=== PATIENT | female | born 1990 | race Hispanic/Latino ===

== ENCOUNTER 2017-12-24 07:36 | Inpatient (IN) | payer OTHER ==
[~2017-12-24] VITALS: Ht 154.9 cm; Wt 109.1 kg
[~2017-12-24 07:36] MED LIST: CETI10CA5 PO; PREN-66 PO
[2017-12-24 08:02] LABS: APPEARANCE,URINE CLEAR (CLEAR); BILIRUBIN,URINE NEGATIVE (NEGATIVE); COLOR,URINE YELLOW (YELLOW); GLUCOSE, URINE (UA) NEGATIVE (NEGATIVE); KETONES,URINE NEGATIVE (NEGATIVE); LEUKOCYTE ESTERASE ,URINE SMALL (NEGATIVE); NITRATE,URINE NEGATIVE (NEGATIVE); OCCULT BLOOD,URINE NEGATIVE (NEGATIVE); PROTEIN,URINE NEGATIVE (NEGATIVE); UROBILINOGEN,URINE 0.2 mg/dL (0.2-1.0)
[2017-12-24] MEDS ORDERED: ONDANSETRON HCL 4 MG/2 ML VIAL ONE (08:06)
[2017-12-24] MEDS ORDERED: MORPHINE SULFATE 8 MG/ML VIAL ONE ×2 (08:07→09:27)
[2017-12-24 08:15] LABS: BACTERIA,URINE Rare /HPF (None Seen); RBC,URINE 0-1 /HPF (0-1); SQUAMOUS EPITHELIAL CELL,UR Rare /HPF (0-2); WBC,URINE 0-1 /HPF (0-1)
[2017-12-24 08:16] LABS: BASOPHILS % (AUTO) 0.7 % (0.0-5.0); EOSINOPHILS % (AUTO) 3.2 % (0.0-8.0); HEMATOCRIT 40.2 % (36-48); LYMPHOCYTES % (AUTO) 33.2 % (21.0-51.0); MEAN CORPUSCULAR HEMOGLOBIN 30.6 pg (27.0-33.0); MEAN CORPUSCULAR HGB CONC 33.7 g/dL (32.0-36.0); MEAN CORPUSCULAR VOLUME 90.8 fL (79-99); MONOCYTES % (AUTO) 6.5 % (3.0-13.0); NEUTROPHILS % (AUTO) 56.4 % (40.0-77.0); PLATELET COUNT (AUTO) 261 K/uL (130-400); RED BLOOD CELL COUNT(AUTO) 4.42 MIL/uL (4.00-5.50); RED CELL DISTRIBUTION WIDTH 13.8 % (11.0-15.5); WHITE BLOOD COUNT (AUTO) 10.4 K/uL (4.8-10.8)
[2017-12-24 08:26] LABS: CREATININE 0.7 mg/dL (0.5-1.5); POTASSIUM 4.1 mmol/L (3.5-5.1)
[2017-12-24 08:31] LABS: ALBUMIN 3.4 g/dL (3.5-5.0); BILIRUBIN,TOTAL 0.2 mg/dL (0.2-1.0); TOTAL PROTEIN, SERUM 7.5 g/dL (6.0-8.3)
[2017-12-24] MEDS ORDERED: SODIUM CHLORIDE 0.9% 1000ML 1,000 ML IV SCH (11:14)
[2017-12-24] MEDS ORDERED: ONDANSETRON HCL 4 MG/2 ML VIAL IV PRN (11:15)
[2017-12-24] MEDS ORDERED: ACETAMINOPHEN 325 MG TAB PO PRN (11:15)
[2017-12-24] MEDS ORDERED: MORPHINE SULFATE 4 MG/1ML SYG IV PRN (11:15)
[2017-12-24] MEDS ORDERED: HYDRALAZINE HCL 20 MG/ML VIAL IV PRN (11:15)
[2017-12-24] MEDS ORDERED: SODIUM CHLORIDE 0.9% 1000ML 1,000 ML IV ONE (11:50)
[2017-12-24] MEDS ORDERED: KETOROLAC TROMETHAMINE 30MG/ML ONE (12:41)
[2017-12-24] MEDS: SODIUM CHLORIDE 0.9% 1000ML 1,000 ML IV SCH ×2 (13:00→21:20)
[2017-12-24] MEDS: CETIRIZINE HCL 5 MG TABLET PO SCH (13:00)
[2017-12-24 13:25] VITALS: BP 124/81
[2017-12-24] MEDS: ACETAMINOPHEN-CODEINE 300/30MG TAB PO PRN ×2 (15:28→21:13)
[2017-12-24 16:00] VITALS: BP 134/89
[2017-12-24 19:18] VITALS: BP 142/83
[2017-12-24] MEDS: FAMOTIDINE/PF 20 MG/2 ML VIAL IV SCH (21:10)
[2017-12-25] VITALS (22 sets, daily range): BP systolic 99–157; BP diastolic 48–98
[2017-12-25] MEDS: SODIUM CHLORIDE 0.9% 1000ML 1,000 ML IV SCH ×2 (05:32→11:00)
[2017-12-25] MEDS: PRENATAL VITAMIN RX TABLET PO SCH (09:00)
[2017-12-25] MEDS: CEFAZOLIN SODIUM 1 GM VIAL IVP SCH ×3 (09:29→20:12)
[2017-12-25] MEDS: FAMOTIDINE/PF 20 MG/2 ML VIAL IV SCH ×2 (09:29→21:17)
[2017-12-25] MEDS: CETIRIZINE HCL 5 MG TABLET PO SCH (12:00)
[2017-12-25] MEDS ORDERED: MIDAZOLAM HCL 1 MG/ML 2ML VIAL ONE ×2 (12:13→13:16)
[2017-12-25] MEDS ORDERED: SUCCINYLCHOLINE 200MG/10ML SYR ONE (13:15)
[2017-12-25] MEDS ORDERED: LIDOCAINE PF 2% 5ML ABBOJECT ONE (13:15)
[2017-12-25] MEDS ORDERED: DEXAMETHASONE SOD PHOSPHATE 10MG/ML 1ML VIAL ONE ×2 (13:15→13:18)
[2017-12-25] MEDS ORDERED: GLYCOPYRROLATE 1 MG/5 ML SYRINGE ONE (13:16)
[2017-12-25] MEDS ORDERED: ONDANSETRON HCL 4 MG/2 ML VIAL ONE (13:16)
[2017-12-25] MEDS ORDERED: PROPOFOL 10 MG/ML 20ML VIAL IV ONE (13:16)
[2017-12-25] MEDS ORDERED: FENTANYL CITRATE PF 50 MCG/1 ML 2ML VIAL ONE ×2 (13:17→14:53)
[2017-12-25] MEDS ORDERED: NEOSTIGMINE 5MG/5ML SYR IV ONE (13:17)
[2017-12-25] MEDS ORDERED: ROCURONIUM 10MG/1ML SYR 10 MG/ML ML ONE (13:17)
[2017-12-25] MEDS ORDERED: BUPIVACAINE/PF 0.5% 30ML VIAL ONE (14:27)
[2017-12-25] MEDS ORDERED: SODIUM CHLORIDE 0.9% 1000ML 1,000 ML IV SCH (15:27)
[2017-12-25] MEDS ORDERED: MORPHINE SULFATE 4 MG/1ML SYG IV PRN (15:30)
[2017-12-26 03:01] VITALS: BP 131/76
[2017-12-26 05:49] LABS: BASOPHILS % (AUTO) 0.5 % (0.0-5.0); EOSINOPHILS % (AUTO) 0.1 % (0.0-8.0); HEMATOCRIT 39.6 % (36-48); LYMPHOCYTES % (AUTO) 15.4 % (21.0-51.0); MEAN CORPUSCULAR HEMOGLOBIN 29.6 pg (27.0-33.0); MEAN CORPUSCULAR HGB CONC 32.8 g/dL (32.0-36.0); MEAN CORPUSCULAR VOLUME 90.4 fL (79-99); MONOCYTES % (AUTO) 3.7 % (3.0-13.0); NEUTROPHILS % (AUTO) 80.3 % (40.0-77.0); PLATELET COUNT (AUTO) 240 K/uL (130-400); RED BLOOD CELL COUNT(AUTO) 4.39 MIL/uL (4.00-5.50); RED CELL DISTRIBUTION WIDTH 13.8 % (11.0-15.5); WHITE BLOOD COUNT (AUTO) 11.1 K/uL (4.8-10.8)
[2017-12-26 06:08] LABS: ALBUMIN 3.1 g/dL (3.5-5.0); BILIRUBIN,TOTAL 0.3 mg/dL (0.2-1.0); CREATININE 0.7 mg/dL (0.5-1.5); POTASSIUM 4.1 mmol/L (3.5-5.1); TOTAL PROTEIN, SERUM 7.1 g/dL (6.0-8.3)
[2017-12-26 08:47] VITALS: BP 132/65
[2017-12-26] MEDS ORDERED: CEFAZOLIN SODIUM 1 GM VIAL IVP SCH (09:00)
[2017-12-26] MEDS: FAMOTIDINE/PF 20 MG/2 ML VIAL IV SCH (10:14)
[2017-12-26] MEDS: CETIRIZINE HCL 5 MG TABLET PO SCH (10:15)
[2017-12-26] MEDS: PRENATAL VITAMIN RX TABLET PO SCH (10:15)
[2017-12-26] MEDS ORDERED: AMOX-426 PO (12:04)
[2017-12-26 12:14] VITALS: BP 131/53
[2017-12-26 16:00] VITALS: BP 120/81
== END 2017-12-26 17:10 | disposition home or self-care (01) | DRG 418 ==
LOC: EDH 07:36 → EDHIP 07:37 → OBSVTOIN 07:37 → 3DH 13:10
PROVIDERS: ADMIT Hospitalist; ATTEND Hospitalist
PROC: 0FT44ZZ Resection of Gallbladder, Percutaneous Endoscopic Approach (ICD-10-PCS; principal; 2017-12-25 14:22)
DX: K80.00 Calculus of gallbladder with acute cholecystitis without obstruction (principal); Z68.42 Body mass index [BMI] 45.0-49.9, adult; E66.9 Obesity, unspecified; K66.8 Other specified disorders of peritoneum; K76.0 Fatty (change of) liver, not elsewhere classified; F17.210 Nicotine dependence, cigarettes, uncomplicated; Z83.3 Family history of diabetes mellitus; Z82.49 Family history of ischemic heart disease and other diseases of the circulatory system
CPT/HCPCS: 36415; 76700; 80053; 81001; 81025; 83690; 85025; 88304; A4218; J0330; J0690; J1100; J1885; J2001; J2250; J2270; J2405; J2704; J2710; J3010; J3490; J7030; J7120

== ENCOUNTER → 2019-10-29 | Outpatient (CLI) | payer BC ==
[~2019-10-29] MED LIST changes: +AMOX-426 PO
== END | disposition home or self-care (01) ==
LOC: OIH 14:36
PROVIDERS: ATTEND Internal Medicine
DX: M65.279 Calcific tendinitis, unspecified ankle and foot (principal); M79.671 Pain in right foot
CPT/HCPCS: 73620

== ENCOUNTER → 2023-01-03 | Outpatient (CLI) | payer BC | END | disposition home or self-care (01) | LOC: RAH 09:53 | PROVIDERS: ATTEND Family Medicine | DX: K76.0 Fatty (change of) liver, not elsewhere classified (principal); R74.01 Elevation of levels of liver transaminase levels; Z90.49 Acquired absence of other specified parts of digestive tract | CPT/HCPCS: 76700 ==